=== PATIENT | female | born 1970 | race Two or more races ===

== ENCOUNTER 2017-06-01 22:13 | Emergency (ER) | payer OTHER ==
[~2017-06-01] VITALS: Ht 162.6 cm; Wt 74.1 kg
[~2017-06-01 22:13] MED LIST: CIPRO500 MG PO; CLONAZEPAM1 MG PO; COLACE100 MG PO; CYMBALTA30 MG PO; DEPAKOTE ER500 MG PO; DULOXETINE HCL20 MG PO; FLAGYL500 MG PO; HYDROCHLOROTHIA25 MG PO; KLONOPIN2 MG PO; LORTAB 5-325 M1 EACH PO; NAPROSYN500 MG PO; NEXIUM20 MG PO; NORCO 5/3251 TABLET PO; PREPARATION H C51 GM PR; RISPERDAL3 MG PO; TEMAZEPAM15 MG PO; TRIAMTERENE-HC1 EACH PO; ZOFRAN4 MG PO
[2017-06-01] MEDS ORDERED: AMOXICILLIN875 MG PO (22:44)
[2017-06-01] MEDS ORDERED: MOTRIN600 MG PO (22:44)
[2017-06-01 23:04] VITALS: BP 112/83
== END 2017-06-01 23:10 | disposition home or self-care (01) ==
LOC: EME 22:13
DX: J02.9 Acute pharyngitis, unspecified (principal)
CPT/HCPCS: 99281; 99284

== ENCOUNTER 2017-06-20 20:58 | Emergency (ER) | payer OTHER ==
[~2017-06-20] VITALS: Ht 165.1 cm; Wt 74.6 kg
[~2017-06-20 20:58] MED LIST changes: +AMOXICILLIN875 MG PO; +MOTRIN600 MG PO
[2017-06-21 01:26] VITALS: BP 123/81
== END 2017-06-21 01:26 | disposition home or self-care (01) ==
LOC: EME 20:58 → EXP 20:58
DX: J02.9 Acute pharyngitis, unspecified (principal); I10 Essential (primary) hypertension; F17.200 Nicotine dependence, unspecified, uncomplicated
CPT/HCPCS: 87651 90; 99281; 99284; J1100

== ENCOUNTER 2017-08-26 21:24 | Emergency (ER) | payer OTHER ==
[~2017-08-26] VITALS: Ht 165.1 cm; Wt 73.3 kg
[2017-08-26] MEDS ORDERED: AUGMENTIN875 MG PO (23:31)
[2017-08-27 00:11] VITALS: BP 124/87
== END 2017-08-27 00:14 | disposition home or self-care (01) ==
LOC: EME 21:24
DX: H10.9 Unspecified conjunctivitis (principal); L03.213 Periorbital cellulitis; I10 Essential (primary) hypertension; F31.9 Bipolar disorder, unspecified; F41.9 Anxiety disorder, unspecified; Z72.0 Tobacco use
CPT/HCPCS: 99281; 99284

== ENCOUNTER 2017-08-29 14:35 | Emergency (ER) | payer OTHER ==
[~2017-08-29] VITALS: Ht 165.1 cm; Wt 73.3 kg
[~2017-08-29 14:35] MED LIST changes: +AUGMENTIN875 MG PO
[2017-08-29 17:40] LABS: EOSINOPHIL (%) 1.1 % (0-5); EOSINOPHIL COUNT 0.1 K/uL (0-0.3); HEMATOCRIT 41.6 % (36.0-46.0); IMMATURE GRANULOCYTE (%) 0.1 % (0.0-0.7); LYMPHOCYTE COUNT 2.6 K/uL (1.0-2.8); MCH 33.4 PG (29.0-34.0); MCHC 34.9 G/DL (30.0-36.0); MCV 95.9 FL (83-99); MEAN PLAT.VOLUME 10.2 uM^3 (9.5-12.4); MONOCYTE (%) 4.2 % (3-12); MONOCYTE COUNT 0.3 K/uL (0-0.8); NEUTROPHIL (%) 61.9 % (45-76); PLATELET COUNT 235 K/uL (156-360); RBC DIS.WIDTH-CV 12.1 % (11.8-14.6); RBC DIS.WIDTH-SD 42.6 % (39-53); RED BLOOD COUNT 4.34 M/uL (3.80-5.20); WHITE BLOOD COUNT 8.1 K/uL (4.1-10.2)
[2017-08-29 17:48] LABS: CHLORIDE 104 mEq/L (99-109); POTASSIUM 3.7 mEq/L (3.7-5.4); SODIUM 141 mEq/L (136-147)
[2017-08-29 17:49] LABS: GLUCOSE 85 mg/dL (70-99)
[2017-08-29 17:51] LABS: ANION GAP 11 MEQ/L (2-14)
[2017-08-29 17:53] LABS: GFR ESTIMATE (CALCULATED) > 59 mL/min/
[2017-08-29 17:54] LABS: UREA NITROGEN (BUN) 10 mg/dL (9-23)
[2017-08-29] MEDS ORDERED: INDOCIN25 MG PO (22:23)
[2017-08-29 22:55] VITALS: BP 110/85
== END 2017-08-29 22:56 | disposition home or self-care (01) ==
LOC: EME 14:35
PROVIDERS: Physician Assistant
DX: H04.302 Unspecified dacryocystitis of left lacrimal passage (principal); F17.200 Nicotine dependence, unspecified, uncomplicated
CPT/HCPCS: 70487; 80048; 83605; 85025; 87040; 87070; 87075; 87106; 87205; 99281; 99285; J1885; J3370; J7030

== ENCOUNTER 2017-09-25 02:44 | Emergency (ER) | payer OTHER ==
[~2017-09-25] VITALS: Ht 165.1 cm; Wt 72.5 kg
[~2017-09-25 02:44] MED LIST changes: +INDOCIN25 MG PO
[2017-09-25 03:30] LABS: HEMATOCRIT 34.2 % (36.0-46.0); MCH 33.7 PG (29.0-34.0); MCHC 35.1 G/DL (30.0-36.0); MCV 96.1 FL (83-99); PLATELET COUNT 193 K/uL (156-360); RBC DIS.WIDTH-CV 12.1 % (11.8-14.6); RBC DIS.WIDTH-SD 42.6 % (39-53); RED BLOOD COUNT 3.56 M/uL (3.80-5.20)
[2017-09-25 03:35] LABS: CHLORIDE 106 mEq/L (99-109); POTASSIUM 3.1 mEq/L (3.7-5.4); SODIUM 139 mEq/L (136-147)
[2017-09-25 03:37] LABS: GLUCOSE 100 mg/dL (70-99)
[2017-09-25 03:41] LABS: CREATININE 0.8 mg/dL (0.6-1.3); GFR ESTIMATE (CALCULATED) > 59 mL/min/
[2017-09-25 03:42] LABS: UREA NITROGEN (BUN) 14 mg/dL (9-23)
[2017-09-25 03:49] LABS: TROP-I INTERPRETATION NEGATIVE; TROPONIN-I < 0.01 ng/mL (0.0-0.30)
[2017-09-25] MEDS ORDERED: ZANTAC150 MG PO (05:52)
[2017-09-25 06:02] VITALS: BP 112/84
== END 2017-09-25 06:05 | disposition home or self-care (01) ==
LOC: EME 02:44
DX: R07.9 Chest pain, unspecified (principal); K21.9 Gastro-esophageal reflux disease without esophagitis; E87.6 Hypokalemia; I10 Essential (primary) hypertension; F17.200 Nicotine dependence, unspecified, uncomplicated; F41.0 Panic disorder [episodic paroxysmal anxiety]; F43.10 Post-traumatic stress disorder, unspecified
CPT/HCPCS: 71020; 80048; 84484; 85027; 93005; 99281; 99285

== ENCOUNTER 2018-04-09 15:30 | Emergency (ER) | payer OTHER ==
[~2018-04-09] VITALS: Ht 167.6 cm; Wt 81.9 kg
[~2018-04-09 15:30] MED LIST changes: +ZANTAC150 MG PO
[2018-04-09] MEDS ORDERED: LAMICTAL25 MG PO (16:10)
[2018-04-09] MEDS ORDERED: CLONAZEPAM0.5 MG PO (16:12)
[2018-04-09] MEDS ORDERED: QUETIAPINE FUMA50 MG PO (16:12)
[2018-04-09] MEDS ORDERED: ATARAX,VISTARIL25 MG PO (16:33)
[2018-04-09 16:57] VITALS: BP 110/88
== END 2018-04-09 17:00 | disposition home or self-care (01) ==
LOC: EME 15:30
DX: F41.1 Generalized anxiety disorder (principal); Z76.0 Encounter for issue of repeat prescription; F31.9 Bipolar disorder, unspecified; I10 Essential (primary) hypertension; F43.10 Post-traumatic stress disorder, unspecified; F41.0 Panic disorder [episodic paroxysmal anxiety]; F17.200 Nicotine dependence, unspecified, uncomplicated
CPT/HCPCS: 99281; 99284

== ENCOUNTER 2018-04-12 23:44 | Emergency (ER) | payer OTHER ==
[~2018-04-12] VITALS: Ht 167.6 cm; Wt 80.7 kg
[~2018-04-12 23:44] MED LIST changes: +ATARAX,VISTARIL25 MG PO; +CLONAZEPAM0.5 MG PO; +LAMICTAL25 MG PO; +QUETIAPINE FUMA50 MG PO
[2018-04-13 00:15] LABS: HEMATOCRIT 35.7 % (36.0-46.0); HEMOGLOBIN 12.6 G/DL (11.9-15.5); MCH 33.8 PG (29.0-34.0); MCHC 35.3 G/DL (30.0-36.0); MCV 95.7 FL (83-99); PLATELET COUNT 282 K/uL (156-360); RBC DIS.WIDTH-CV 12.4 % (11.8-14.6); RBC DIS.WIDTH-SD 43.2 % (39-53); RED BLOOD COUNT 3.73 M/uL (3.80-5.20); WHITE BLOOD COUNT 10.8 K/uL (4.1-10.2)
[2018-04-13 00:23] LABS: CHLORIDE 107 mEq/L (99-109); POTASSIUM 3.2 mEq/L (3.7-5.4); SODIUM 140 mEq/L (136-147)
[2018-04-13 00:24] LABS: GLUCOSE 136 mg/dL (70-99)
[2018-04-13 00:28] LABS: GFR ESTIMATE (CALCULATED) > 59 mL/min/
[2018-04-13 00:29] LABS: UREA NITROGEN (BUN) 9 mg/dL (9-23)
[2018-04-13 00:33] LABS: D-DIMER ELISA < 150.00 ng/mLDDU (<230)
[2018-04-13 00:36] LABS: TROP-I INTERPRETATION NEGATIVE; TROPONIN-I < 0.01 ng/mL (0.0-0.30)
[2018-04-13 00:40] LABS: SERUM ETHYL ALCOHOL < 10 mg/dL
[2018-04-13 00:48] LABS: QUANTITATIVE HCG < 4.0 MIU/ML
[2018-04-13] MEDS ORDERED: KLONOPIN1 MG PO (01:22)
[2018-04-13 01:45] VITALS: BP 117/78
== END 2018-04-13 01:46 | disposition home or self-care (01) ==
LOC: EME 23:44
DX: F13.239 Sedative, hypnotic or anxiolytic dependence with withdrawal, unspecified (principal); E87.6 Hypokalemia; R07.9 Chest pain, unspecified; R42 Dizziness and giddiness; R51 Headache; R00.2 Palpitations; R11.0 Nausea; R00.0 Tachycardia, unspecified; I10 Essential (primary) hypertension; F17.210 Nicotine dependence, cigarettes, uncomplicated
CPT/HCPCS: 71046; 80048; 84484; 84702; 85027; 85379; 93005; 99281; 99284; G0480; J2060; J7030

== ENCOUNTER 2018-05-07 12:53 | Emergency (ER) | payer OTHER ==
[~2018-05-07] VITALS: Ht 167.6 cm; Wt 81.6 kg
[~2018-05-07 12:53] MED LIST changes: +KLONOPIN1 MG PO
[2018-05-07 13:00] VITALS: BP 131/83
[2018-05-07] MEDS ORDERED: LAMICTAL25 MG PO (14:12)
[2018-05-07] MEDS ORDERED: QUETIAPINE FUMA50 MG PO (14:12)
[2018-05-07] MEDS ORDERED: CYMBALTA20 MG PO (14:12)
== END 2018-05-07 15:01 | disposition home or self-care (01) ==
LOC: EME 12:53
DX: F41.9 Anxiety disorder, unspecified (principal); Z76.0 Encounter for issue of repeat prescription; R07.9 Chest pain, unspecified; F43.9 Reaction to severe stress, unspecified; F17.200 Nicotine dependence, unspecified, uncomplicated